=== PATIENT | male | born 1985 | race Caucasian/White ===

== ENCOUNTER 2020-06-05 13:57 | Emergency (ER) | payer OTHER ==
[2020-06-05 14:33] VITALS: BMI 29.2
[2020-06-05] MEDS ORDERED: ACETAMINOPHEN 1000 MG/100 ML VIAL (NON FORMULARY) IVPB ONE (15:05)
[2020-06-05] MEDS ORDERED: METOCLOPRAMIDE HCL INJECTION 10 MG/2 ML VIAL IVPB ONE (15:05)
[2020-06-05] MEDS ORDERED: amLODIPine BESYLATE 5 MG TABLET (FP) PO ONE (15:05)
[2020-06-05] MEDS ORDERED: SODIUM CHLORIDE 1,000 ML IV STA (15:05)
[2020-06-05] MEDS ORDERED: METOCLOPRAMIDE HCL INJECTION 10 MG/2 ML VIAL ONE (15:26)
[2020-06-05] MEDS ORDERED: ACETAMINOPHEN INJECTION 100 ML IVPB ONE (15:26)
[2020-06-05] MEDS ORDERED: amLODIPine BESYLATE 5 MG TABLET (FP) ONE (15:26)
[2020-06-05 15:53] LABS: BASO % 0.5 % (0-2.0); HEMATOCRIT 42.4 % (35.4-49); HEMOGLOBIN 14.2 GM/dL (11.7-16.9); LYMPH % 24.9 % (8-40); MCH 29.6 pg (25.7-33.7); MCHC 33.6 g/dl (32.0-35.9); MEAN CELL VOLUME 88.2 fl (80-96); MEAN PLT VOLUME 8.6 fl (7.5-11.1); MONO % 10.2 % (3.8-10.2); NEUT % 63.4 % (42.8-82.8); PLATELET COUNT 241 K/MM3 (134-434); RBC 4.81 M/mm3 (4.00-5.60); WHITE BLOOD COUNT 5.3 K/mm3 (4.0-10.0)
[2020-06-05 16:19] LABS: ALBUMIN 4.2 g/dl (3.4-5.0); BLOOD UREA NITROGEN 13.8 mg/dL (7-18); CALCIUM 9.3 mg/dL (8.5-10.1)
[2020-06-05 16:22] LABS: CREATININE 1.1 mg/dL (0.55-1.3)
[2020-06-05 16:24] LABS: BILIRUBIN,TOTAL 0.3 mg/dL (0.2-1); TOT PROT 7.7 g/dl (6.4-8.2)
[2020-06-05 17:02] VITALS: BP 152/94; PULSE 70; TEMP 98.2
== END 2020-06-05 17:35 | disposition home or self-care (01) ==
LOC: JER 13:57
PROC: 3E0333Z Introduction of Anti-inflammatory into Peripheral Vein, Percutaneous Approach (ICD-10-PCS; principal; 2020-06-05)
PROC: 3E033GC Introduction of Other Therapeutic Substance into Peripheral Vein, Percutaneous Approach (ICD-10-PCS; 2020-06-05)
PROC: 3E0337Z Introduction of Electrolytic and Water Balance Substance into Peripheral Vein, Percutaneous Approach (ICD-10-PCS; 2020-06-05)
DX: R51.9 Headache, unspecified (principal); I10 Essential (primary) hypertension
CPT/HCPCS: 36415; 80053; 84439; 84443; 85025; 99284-25; J0131